=== PATIENT | male | born 1985 | race Caucasian/White ===

== ENCOUNTER 2018-05-26 14:14 | Emergency (ER) | payer SELFPAY ==
[2018-05-26 16:41] LABS: #Basophils 0.1 thou/uL (0.0-0.2); #Eosinphils 0.1 thou/uL (0.0-0.7); #Lymphocytes 2.4 thou/uL (1.20-3.40); #Monocytes 0.6 thou/uL (0.11-0.59); #Neutrophils 4.6 thou/uL (1.40-6.50); %Basophils 1.4 % (0.0-1.0); %Eosinophils 1.3 % (0.0-10.0); %Lymphocytes 30.3 % (21.0-51.0); %Monocytes 7.7 % (0.0-10.0); %Neutrophils 59.3 % (42.0-75.0); Mean Corpuscular Hemoglobin 30.5 pg (27.0-31.0); Mean Corpuscular Volume 92.4 fL (78.0-98.0); Mean Platelet Volume 7.1 fL (7.4-10.4); Platelet Count 293 thou/uL (130-400); RBC Distribution Width 12.4 % (11.5-14.5); Red Blood Cell (RBC) Count 4.59 mill/uL (4.70-6.10); White Blood Cell (WBC) Count 7.8 thou/uL (4.8-10.8)
[2018-05-26 17:08] LABS: ALT (SGPT) 15 U/L (8-55); AST (SGOT) 20 U/L (5-34); Albumin 4.4 g/dL (3.5-5.0); Alkaline Phosphatase 61 U/L (40-150); Anion Gap 11 mmol/L (10-20); BUN (Urea Nitrogen) 12 mg/dL (8.9-20.6); Bilirubin, Total 0.9 mg/dL (0.2-1.2); Calc. Creatinine Clearance 0 mL/min (70-130); Calcium 9.2 mg/dL (7.8-10.44); Carbon Dioxide 28 mmol/L (22-29); Chloride 103 mmol/L (98-107); Estimated GFR-MDRD 84; Globulin 2.9 g/dL (2.4-3.5); Glucose 97 mg/dL (70-105); Lipase 38 U/L (8-78); Potassium 4.2 mmol/L (3.5-5.1); Protein, Total 7.3 g/dL (6.0-8.3); Sodium 138 mmol/L (136-145)
== END 2018-05-26 16:44 | disposition home or self-care (01) ==
LOC: ERS 14:14
DX: K46.9 Unspecified abdominal hernia without obstruction or gangrene (principal); I10 Essential (primary) hypertension; E78.5 Hyperlipidemia, unspecified; F17.210 Nicotine dependence, cigarettes, uncomplicated
CPT/HCPCS: 36415; 80053; 83690; 85025; 99284

== ENCOUNTER 2018-10-08 22:39 | Emergency (ER) | payer SELFPAY ==
[2018-10-08] MEDS ORDERED: traMADol HCl 50 MG TAB ONE (23:07)
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
== END 2018-10-08 23:18 | disposition home or self-care (01) ==
LOC: ERS 22:39
DX: S63.601A Unspecified sprain of right thumb, initial encounter (principal); E78.5 Hyperlipidemia, unspecified; I10 Essential (primary) hypertension; F41.9 Anxiety disorder, unspecified; F17.210 Nicotine dependence, cigarettes, uncomplicated; Z79.899 Other long term (current) drug therapy; Y04.0XXA Assault by unarmed brawl or fight, initial encounter

== ENCOUNTER 2019-06-11 10:31 | Emergency (ER) | payer SELFPAY ==
[2019-06-11] MEDS ORDERED: Diazepam 5 MG TAB ONE (11:16)
[2019-06-11] MEDS ORDERED: Ketorolac Tromethamine 30 MG/ML VIAL ONE (11:16)
[2019-06-11] MEDS ORDERED: Ondansetron ODT 4 MG TAB ONE (11:42)
--- NOTE | 2019-06-11 11:46 | CT ---
CT of the lumbar spine: 06/11/2019 COMPARISON: 08/06/2018 HISTORY: Recent injury, pain TECHNIQUE: Axial CT imaging at 2.5 mm intervals from the lower thoracic spine through the mid sacrum without contrast. Coronal and sagittal reformatted imaging obtained. FINDINGS: Evaluation for central canal and/or neural foraminal stenosis is limited on routine CT exam ination. Lumbar vertebral body height and alignment is normal. T12-L1: No osseous cause of significant central canal or neural foraminal stenosis. L1-2: No osseous cause of significant central canal or neural foraminal stenosis L2-3: No osseous cause of significant central canal or neural foraminal stenosis L3-4: No osseous cause of significant central canal or neural foraminal stenosis L4-5: Mild bilateral facet hypertrophy. No osseous cause of significant central canal or neural neelam inal stenosis L4-5: Bilateral facet hypertrophy, right greater than left. Mild disc bulge. No osseous cause of sign ificant central canal or neural foraminal stenosis. No acute fracture or evidence of dislocation is seen. The imaged retroperitoneal structures demonstrate no acute findings. If there are radicular symptoms, follow-up MRI may be beneficial. IMPRESSION: No acute osseous abnormality.
[2019-06-11] MEDS ORDERED: Dexamethasone 10 MG/ML VIAL ONE (12:48)
== END 2019-06-11 12:54 | disposition home or self-care (01) ==
LOC: ERS 10:31
DX: M54.5 Low back pain (principal); E78.5 Hyperlipidemia, unspecified; I10 Essential (primary) hypertension; F41.9 Anxiety disorder, unspecified; F90.9 Attention-deficit hyperactivity disorder, unspecified type; F17.210 Nicotine dependence, cigarettes, uncomplicated; Z79.899 Other long term (current) drug therapy
CPT/HCPCS: 72131; 96372; J1100; J1885; Q0162

== ENCOUNTER 2019-12-11 16:03 | Emergency (ER) | payer SELFPAY ==
[2019-12-11] MEDS ORDERED: Ketorolac Tromethamine 30 MG/ML VIAL ONE (16:42)
== END 2019-12-11 16:52 | disposition home or self-care (01) ==
LOC: ERS 16:03
DX: S02.5XXA Fracture of tooth (traumatic), initial encounter for closed fracture (principal); E78.5 Hyperlipidemia, unspecified; E78.00 Pure hypercholesterolemia, unspecified; I10 Essential (primary) hypertension; F98.8 Other specified behavioral and emotional disorders with onset usually occurring in childhood and adolescence; F90.9 Attention-deficit hyperactivity disorder, unspecified type; F17.210 Nicotine dependence, cigarettes, uncomplicated; W11.XXXA Fall on and from ladder, initial encounter
CPT/HCPCS: 96372; 99283; J1885

== ENCOUNTER 2020-06-05 22:09 | Emergency (ER) | payer SELFPAY ==
[2020-06-05] MEDS ORDERED: HYDROcodone/Acetaminophen 5/325 mg Tablet ONE (22:32)
--- NOTE | 2020-06-05 22:54 | RAD ---
XR Foot Lt 3 View STANDARD INDICATION: Left foot injury COMPARISON: None. FINDINGS: Bones: There is a comminuted distal tuft fracture of the left great toe. There is no overt evidence t o suggest extension into the IP joint. No radiopaque foreign body is demonstrated. Joints: Joints spaces appear preserved. Lisfranc alignment: Lisfranc alignment appears within normal limits. Soft tissues: No soft tissue injury demonstrated. No radiographic foreign body demonstrated. IMPRESSION: Great toe distal tuft fracture
== END 2020-06-05 23:37 | disposition home or self-care (01) ==
LOC: ERS 22:09
DX: S92.422A Displaced fracture of distal phalanx of left great toe, initial encounter for closed fracture (principal); S90.122A Contusion of left lesser toe(s) without damage to nail, initial encounter; E78.5 Hyperlipidemia, unspecified; E78.00 Pure hypercholesterolemia, unspecified; I10 Essential (primary) hypertension; F41.9 Anxiety disorder, unspecified; F90.9 Attention-deficit hyperactivity disorder, unspecified type; F98.8 Other specified behavioral and emotional disorders with onset usually occurring in childhood and adolescence; F17.210 Nicotine dependence, cigarettes, uncomplicated; W19.XXXA Unspecified fall, initial encounter
CPT/HCPCS: 28490

== ENCOUNTER 2020-10-10 08:49 | Emergency (ER) | payer MEDICAID, SELFPAY ==
[2020-10-10 09:51] LABS: Bilirubin Negative (Negative); Blood, Urine Negative (Negative); Clarity Clear (Clear); Glucose, Urine (Dipstick) Normal (Negative); Ketone, Urine Negative (Negative); Leukocyte Negative Leu/uL (Negative); Nitrite Negative (Negative); Protein, Urine (Dipstick) 20 mg/dL (Neg-Trace); Specific Gravity, Urine 1.036 (1.002-1.036); Urobilinogen Normal mg/dL (Less than 2)
[2020-10-10 11:00] LABS: #Basophils 0.1 thou/uL (0.0-0.2); #Eosinphils 0.1 thou/uL (0.0-0.7); #Lymphocytes 2.2 thou/uL (1.20-3.40); #Monocytes 0.7 thou/uL (0.11-0.59); #Neutrophils 3.1 thou/uL (1.40-6.50); %Basophils 1.4 % (0.0-1.0); %Eosinophils 1.4 % (0.0-10.0); %Lymphocytes 35.8 % (21.0-51.0); %Monocytes 11.1 % (0.0-10.0); %Neutrophils 50.4 % (42.0-75.0); Hemoglobin 13.7 g/dL (14.0-18.0); Mean Corpuscular HGB CONC 32.5 g/dL (32.0-36.0); Mean Corpuscular Hemoglobin 30.1 pg (27.0-31.0); Mean Corpuscular Volume 92.5 fL (78.0-98.0); Platelet Count 279 thou/uL (130-400); Red Blood Cell (RBC) Count 4.54 mill/uL (4.70-6.10); White Blood Cell (WBC) Count 6.1 thou/uL (4.8-10.8)
[2020-10-10 11:17] LABS: ALT (SGPT) 59 U/L (8-55); AST (SGOT) 40 U/L (5-34); Albumin 4.2 g/dL (3.5-5.0); Alkaline Phosphatase 77 U/L (40-110); Anion Gap 12 mmol/L (10-20); BUN (Urea Nitrogen) 16 mg/dL (8.9-20.6); Bilirubin, Total 0.3 mg/dL (0.2-1.2); Calc. Creatinine Clearance 0 mL/min (70-130); Calcium 8.7 mg/dL (7.8-10.44); Carbon Dioxide 26 mmol/L (22-29); Chloride 107 mmol/L (98-107); Estimated GFR-MDRD Greater than 90; Globulin 2.7 g/dL (2.4-3.5); Glucose 103 mg/dL (70-105); Potassium 4.7 mmol/L (3.5-5.1); Protein, Total 6.9 g/dL (6.0-8.3); Sodium 140 mmol/L (136-145)
== END 2020-10-10 11:42 | disposition home or self-care (01) ==
LOC: ERS 08:49
DX: S39.012A Strain of muscle, fascia and tendon of lower back, initial encounter (principal); E78.5 Hyperlipidemia, unspecified; E78.00 Pure hypercholesterolemia, unspecified; I10 Essential (primary) hypertension; F41.9 Anxiety disorder, unspecified; F90.9 Attention-deficit hyperactivity disorder, unspecified type; Z87.891 Personal history of nicotine dependence; W17.2XXA Fall into hole, initial encounter
CPT/HCPCS: 36415; 80053; 81003; 85025; 99283

== ENCOUNTER 2021-05-15 14:17 | Emergency (ER) | payer MEDICAID ==
[2021-05-15 14:55] LABS: #Basophils 0.1 thou/uL (0.0-0.2); #Eosinphils 0.1 thou/uL (0.0-0.7); #Lymphocytes 2.4 thou/uL (1.20-3.40); #Monocytes 0.8 thou/uL (0.11-0.59); #Neutrophils 4.7 thou/uL (1.40-6.50); %Basophils 1.3 % (0.0-1.0); %Eosinophils 1.6 % (0.0-10.0); %Lymphocytes 29.3 % (21.0-51.0); %Monocytes 9.8 % (0.0-10.0); Hemoglobin 14.7 g/dL (14.0-18.0); Mean Corpuscular HGB CONC 33.5 g/dL (32.0-36.0); Mean Corpuscular Hemoglobin 30.8 pg (27.0-31.0); Mean Corpuscular Volume 92.2 fL (78.0-98.0); Mean Platelet Volume 7.9 fL (7.4-10.4); Platelet Count 274 thou/uL (130-400); RBC Distribution Width 12.5 % (11.5-14.5); Red Blood Cell (RBC) Count 4.76 mill/uL (4.70-6.10); White Blood Cell (WBC) Count 8.2 thou/uL (4.8-10.8)
[2021-05-15 15:15] LABS: ALT (SGPT) 17 U/L (8-55); AST (SGOT) 17 U/L (5-34); Albumin 4.5 g/dL (3.5-5.0); Alkaline Phosphatase 74 U/L (40-110); Anion Gap 12 mmol/L (10-20); BUN (Urea Nitrogen) 13 mg/dL (8.9-20.6); Bilirubin, Total 0.4 mg/dL (0.2-1.2); Calc. Creatinine Clearance 0 mL/min (70-130); Calcium 9.2 mg/dL (7.8-10.44); Carbon Dioxide 25 mmol/L (22-29); Chloride 104 mmol/L (98-107); Glucose 101 mg/dL (70-105); Lipase 34 U/L (8-78); Potassium 4.6 mmol/L (3.5-5.1); Protein, Total 7.5 g/dL (6.0-8.3); Sodium 136 mmol/L (136-145)
[2021-05-15] MEDS ORDERED: Ketorolac Tromethamine 30 MG/ML VIAL ONE (16:26)
[2021-05-15 18:47] LABS: SARS-CoV-2 NAA Rapid Test Not Detected (NotDetected)
== END 2021-05-15 17:37 | disposition home or self-care (01) ==
LOC: ERS 14:17
DX: I30.9 Acute pericarditis, unspecified (principal); Z20.822 Contact with and (suspected) exposure to COVID-19; E78.5 Hyperlipidemia, unspecified; E78.00 Pure hypercholesterolemia, unspecified; I10 Essential (primary) hypertension; Z87.891 Personal history of nicotine dependence
CPT/HCPCS: 36415; 71045; 80053; 83690; 84484; 85025; 85652; 86140; 93005; 96374; J1885; U0002; U0005

== ENCOUNTER 2021-07-30 13:43 | Emergency (ER) | payer OTHER ==
[2021-07-31 03:45] LABS: SARS-CoV-2 PCR by NAA Not Detected (NotDetected)
== END 2021-07-30 15:09 | disposition home or self-care (01) ==
LOC: ERS 13:43
DX: R19.7 Diarrhea, unspecified (principal); R50.9 Fever, unspecified; R05 Cough; M79.10 Myalgia, unspecified site; Z20.822 Contact with and (suspected) exposure to COVID-19; E78.5 Hyperlipidemia, unspecified; E78.00 Pure hypercholesterolemia, unspecified; I10 Essential (primary) hypertension; F17.210 Nicotine dependence, cigarettes, uncomplicated
CPT/HCPCS: 99283; U0003; U0005

== ENCOUNTER 2021-09-28 06:53 | Emergency (ER) | payer OTHER ==
[2021-09-28] MEDS ORDERED: Ondansetron ODT 4 MG TAB ONE (07:21)
[2021-09-28] MEDS ORDERED: Ketorolac Tromethamine 30 MG/ML VIAL ONE (07:21)
[2021-09-28 11:51] LABS: SARS-CoV-2 PCR by NAA Not Detected (NotDetected)
== END 2021-09-28 07:30 | disposition home or self-care (01) ==
LOC: ERS 06:53
DX: R05.9 Cough, unspecified (principal); R50.9 Fever, unspecified; R11.2 Nausea with vomiting, unspecified; R19.7 Diarrhea, unspecified; R53.83 Other fatigue; Z20.822 Contact with and (suspected) exposure to COVID-19; E78.5 Hyperlipidemia, unspecified; E78.00 Pure hypercholesterolemia, unspecified; I10 Essential (primary) hypertension; Z87.891 Personal history of nicotine dependence; Z79.899 Other long term (current) drug therapy
CPT/HCPCS: 96372; 99283; J1885; Q0162; U0003; U0005

== ENCOUNTER 2021-11-04 15:45 | Emergency (ER) | payer OTHER | END 2021-11-04 17:54 | disposition left against medical advice (07) | LOC: ERS 15:45 | DX: Z53.21 Procedure and treatment not carried out due to patient leaving prior to being seen by health care provider (principal) ==

== ENCOUNTER 2022-06-26 18:51 | Emergency (ER) | payer OTHER ==
[2022-06-26] MEDS ORDERED: Ondansetron PF 4 MG/2 ML Vial ONE (19:18)
[2022-06-26] MEDS ORDERED: Acetaminophen 500 MG TAB ONE (19:18)
[2022-06-26 19:44] LABS: #Basophils 0.1 thou/uL (0.0-0.2); #Lymphocytes 0.9 thou/uL (1.20-3.40); #Monocytes 0.6 thou/uL (0.11-0.59); #Neutrophils 9.4 thou/uL (1.40-6.50); %Basophils 0.7 % (0.0-1.0); %Eosinophils 0.1 % (0.0-10.0); %Lymphocytes 8.2 % (21.0-51.0); %Monocytes 5.4 % (0.0-10.0); %Neutrophils 85.6 % (42.0-75.0); Hemoglobin 14.7 g/dL (14.0-18.0); Mean Corpuscular HGB CONC 32.5 g/dL (32.0-36.0); Mean Corpuscular Hemoglobin 31.1 pg (27.0-31.0); Mean Corpuscular Volume 95.6 fL (78.0-98.0); Mean Platelet Volume 7.5 fL (7.4-10.4); Platelet Count 288 thou/uL (130-400); RBC Distribution Width 11.7 % (11.5-14.5); Red Blood Cell (RBC) Count 4.71 mill/uL (4.70-6.10)
[2022-06-26 20:03] LABS: ALT (SGPT) 11 U/L (8-55); AST (SGOT) 13 U/L (5-34); Albumin 4.2 g/dL (3.5-5.0); Alkaline Phosphatase 89 U/L (40-110); Anion Gap 15 mmol/L (10-20); BUN (Urea Nitrogen) 15 mg/dL (8.9-20.6); Bilirubin, Total 0.9 mg/dL (0.2-1.2); Calc. Creatinine Clearance 0 mL/min (70-130); Calcium 9.2 mg/dL (7.8-10.44); Carbon Dioxide 23 mmol/L (22-29); Chloride 103 mmol/L (98-107); Estimated GFR 82; Globulin 3.1 g/dL (2.4-3.5); Glucose 112 mg/dL (70-105); Lipase 27 U/L (8-78); Potassium 4.1 mmol/L (3.5-5.1); Protein, Total 7.3 g/dL (6.0-8.3); Sodium 137 mmol/L (136-145)
== END 2022-06-26 20:55 | disposition home or self-care (01) ==
LOC: ERS 18:51
DX: R19.7 Diarrhea, unspecified (principal); R10.9 Unspecified abdominal pain; R11.2 Nausea with vomiting, unspecified; R50.9 Fever, unspecified; Z20.822 Contact with and (suspected) exposure to COVID-19; I10 Essential (primary) hypertension; E78.5 Hyperlipidemia, unspecified; F17.210 Nicotine dependence, cigarettes, uncomplicated; Z79.899 Other long term (current) drug therapy
CPT/HCPCS: 71045; 80053; 83690; 85025; 87804; 96361; 96374; J2405; U0003; U0005

== ENCOUNTER 2023-07-13 09:41 | Emergency (ER) | payer OTHER ==
[2023-07-13] MEDS ORDERED: Ketorolac Tromethamine 30 MG/ML VIAL ONE (09:55)
== END 2023-07-13 11:05 | disposition home or self-care (01) ==
LOC: ERS 09:41
DX: M70.41 Prepatellar bursitis, right knee (principal); F17.210 Nicotine dependence, cigarettes, uncomplicated; I10 Essential (primary) hypertension
CPT/HCPCS: 96372; J1885

== ENCOUNTER 2025-09-12 09:20 | Emergency (ER) | payer OTHER, SELFPAY | END 2025-09-12 11:48 | disposition home or self-care (01) | LOC: ERS 09:20 | DX: J06.9 Acute upper respiratory infection, unspecified (principal); I10 Essential (primary) hypertension; F17.210 Nicotine dependence, cigarettes, uncomplicated; Z79.899 Other long term (current) drug therapy | CPT/HCPCS: 87428; 99283 ==